=== PATIENT | male | born 1945 | race Caucasian/White ===

== ENCOUNTER 2022-03-09 06:07 | Day surgery (SDC) | payer MEDICARE, BC ==
[2022-03-05 14:04] LABS: BASOPHILS % (AUTO) 0.5 % (0-1); EOSINOPHILS # (AUTO) 0.2 X10'3 (0-0.9); EOSINOPHILS % (AUTO) 2.3 % (0-6); LYMPHOCYTES # (AUTO) 1.7 X10'3 (1.1-4.8); LYMPHOCYTES % (AUTO) 19.2 % (21-51); MEAN CORPUSCULAR HEMOGLOBIN 30.9 PG (27.0-31.0); MEAN CORPUSCULAR HGB CONC 34.4 g/dL (33.0-36.5); MONOCYTES # (AUTO) 0.8 X10'3 (0-0.9); MONOCYTES % (AUTO) 9.4 % (2-12); NEUTROPHILS # (AUTO) 6.1 X10'3 (1.8-7.7); NEUTROPHILS % (AUTO) 68.6 % (42-75); PRE OP HEMATOCRIT 53.3 % (42.0-52.0); PRE OP PLATELET COUNT 217 X10'3 (140-440); RED BLOOD COUNT 5.92 X10'6 (4.70-6.10)
[2022-03-05 14:20] LABS: ALBUMIN 3.8 G/DL (3.4-5.0); ALBUMIN/GLOBULIN RATIO 1.2 (1.1-1.5); ALKALINE PHOSPHATASE 81 IU/L (46-116); BLOOD UREA NITROGEN 18 MG/DL (7-18); BUN/CREATININE RATIO 13.6 (5.4-32.0); CALCIUM 9.2 MG/DL (8.5-10.1); CHLORIDE 105 MMOL/L (99-107); CREATININE 1.32 MG/DL (0.60-1.10); PRE OP ALT 19 U/L (30-65); PRE OP ANION GAP 12 (8-16); PRE OP AST 19 U/L (10-37); PRE OP BILIRUB, TOTAL 0.6 MG/DL (0.0-1.0); PRE OP GLUCOSE 123 MG/DL (70-104); PRE OP POTASSIUM 3.9 MMOL/L (3.4-5.1); PRE OP SODIUM 141 MMOL/L (135-145); TOTAL PROTEIN 6.9 G/DL (6.4-8.2); eGFR 53 ML/MIN
[2022-03-05 14:24] LABS: PRE OP HEMOGLOBIN 18.3 g/dL (14.0-17.9)
[~2022-03-09] VITALS: Ht 177.8 cm; Wt 100.8 kg
[~2022-03-09 06:07] MED LIST: ENAL20TA75 PO; TIMO5DRO33 EACHEYE; XAL0.005OS EACHEYE; ceFAZolin inj. 2,000 MG in dextrose 5%-water 100 ML IV ONE; famotidine 20mg tablet PO ONE; ringers solution, lacted 1,000 ML IV SCH
[2022-03-09] MEDS ORDERED: BUPIVAcaine/PF 2.5mg/ml (0.25%) 10ml vial ONE (06:44)
[2022-03-09 06:50] VITALS: BP 162/92
[2022-03-09] MEDS ORDERED: LIDOcaine 1% 30ml preserv. free vial ONE (07:22)
[2022-03-09] MEDS ORDERED: MIDAZolam 1 MG/ML 5ML VIAL ONE (09:25)
[2022-03-09] MEDS ORDERED: fentaNYL/PF 50MCG/1 ML 2ML syringe ONE (09:25)
[2022-03-09] MEDS ORDERED: ketorolac trometh. 30mg/ml inj. ONE (09:32)
[2022-03-09 09:56] VITALS: BP 166/98
[2022-03-09 10:00] VITALS: BP 142/97
--- NOTE | 2022-03-09 10:00 | NUR ---
Received from OR via [facility], accompanied by Anesthesiologist DR FINNEGAN and report given by Anesthesiolgist. PT IS AWAKE, FOLLOWING COMMANDS AND ANSWERING QUESTIONS APPROPRIATELY. PT PLACED ON BEDSIDE MONITOR, VSS. PT IN SR WITH RATE IN 60'S. PT IS ON RA AND TOLERATING WILL WITH O2 SAT >95%. PT HAS 20G PIV TO LEFT WRIST WITH LR INFUSING ORDERED. PT HAS DRSG TO RT HAND/WRIST AND ELBOW THAT ARE CDI. PILLOW PLACE UNDER ARM FOR ELEVATION AND ICE PACK PLACED. PT DENIES PAIN AT THIS TIME. LEVON CONTINUE TO ASSESS
[2022-03-09 10:10] VITALS: BP 149/94
[2022-03-09 10:20] VITALS: BP 140/93
[2022-03-09 10:30] VITALS: BP 147/92
--- NOTE | 2022-03-09 10:35 | NUR ---
PT TAKEN OFF MONITOR TO GET DRESSES AND TO USE RESTROOM BEFORE DISCHARGE.
--- NOTE | 2022-03-09 10:55 | NUR ---
ALL DISCHARGE CRITERIA HAS BEEN MET. VSS, PAIN AT A TOLERABLE LEVEL, VOIDING AND ABLE TO SAFELY AMBULATE AND TRANSFER SELF. IV TAKEN OUT WITHOUT ANY COMPLICATIONS. ALL DISCHARGE INSTRUCTIONS COVERED WITH PATIENT AND ALL QUESTIONS ANSWERED. PATIENT TAKEN OUT VIA WHEELCHAIR TO PERSONAL VEHICLE WHERE DEMARIO DROVE PATIENT HOME.
== END 2022-03-09 10:46 | disposition home or self-care (01) ==
LOC: PAS 06:07
PROVIDERS: ATTEND Orthopaedic Surgery Hand Surgery
DX: G56.01 Carpal tunnel syndrome, right upper limb (principal); G56.21 Lesion of ulnar nerve, right upper limb; I10 Essential (primary) hypertension; Z79.899 Other long term (current) drug therapy; Z98.890 Other specified postprocedural states; Z72.89 Other problems related to lifestyle
CPT/HCPCS: 36415; 64718; 64721; 80053; 82948; 85025; 93005; J0690; J1885; J2250; J3010; J3490; J7030; J7060; J7120; Z7506; Z7512; A4215; A6446; A6449